=== PATIENT | male | born 1955 | race Hispanic/Latino ===

== ENCOUNTER 2016-10-21 10:24 | Inpatient (IN) | payer BC ==
[2016-10-21 11:27] LABS: Basophils % (Auto) 0.5 % (0.0-1.8); Eosinophils % (Auto) 0.7 % (0.0-4.3); Hematocrit 40.6 % (35.5-45.6); Hemoglobin 13.6 gm/dl (11.8-15.2); Mean Corpuscular HGB Conc 34 % (32-34); Mean Corpuscular Hemoglobin 32 pg (28-32); Mean Corpuscular Volume 94 fl (84-94); Platelet Count 402 K/mm3 (140-440); Red Blood Count 4.31 M/mm3 (3.65-5.03); Red Cell Distribution Width 13.8 % (13.2-15.2); White Blood Count 11.4 K/mm3 (4.5-11.0)
--- NOTE | 2016-10-21 11:29 | XRay Report ---
CHEST 2 VIEWS INDICATION: Shortness of breath. COMPARISON: 01/01/2013 FINDINGS: PA and lateral chest radiographs, 4 images, again demonstrate normal cardiomediastinal silhouette, left hilar surgical clips and hyperexpanded lungs/COPD. No large pleural effusions or CHF. Stable bones. CONCLUSION: No acute chest process or significant interval change with COPD and post surgical changes again noted, as described. Thank you for the opportunity to participate in this patient's care.
[2016-10-21 11:43] LABS: Blood Urea Nitrogen 7 mg/dL (9-20); Calcium 8.4 mg/dL (8.4-10.2); Carbon Dioxide 23 mmol/L (22-30); Glucose 137 mg/dL (75-100); Sodium 127 mmol/L (137-145)
[2016-10-21] MEDS ORDERED: ATROVENT IH ONE (11:53)
[2016-10-21] MEDS ORDERED: PROVENTIL IH ONE (11:53)
[2016-10-21] MEDS ORDERED: NACL 0.9% 1000 ML IV ONE (11:53)
--- NOTE | 2016-10-21 11:55 | Emergency Department Report ---
HPI - General Chief Complaint: Dyspnea/Respdistress Time Seen by Provider: 10/21/16 11:36 - HPI HPI: Chief complaint: Shortness of breath HPI: Patient is a 61-year-old male with a history of lung cancer, COPD status post left upper lobectomy who continues to smoke who presents with 1-1/2 weeks worth of increasing shortness of breath with productive cough with yellow sputum. Patient also complains of right-sided chest pain that is pleuritic that he describes as worse with inspiration and coughing similar to the pain he had when he had his lung cancer. Patient also states he's lost about 4 pounds in the last week and a half. Patient states he had a fever early on in the illness but is no longer running a fever. Patient has had been having increasing shortness of breath especially exertional shortness of breath. Mode of arrival: [private car] Source: [Patient] Began: Over the last week and a half Duration: Continuously worsening Context: See above Quality: Sharp Severity: 5 out of 10 Improved with: Nothing Worsened with: Exertion Associated signs and symptoms: See above ED Past Medical Hx - Past Medical History Hx Hypertension: Yes Hx GERD: Yes Hx of Cancer: Yes (LUNG) Hx COPD: Yes - Surgical History Additional Surgical History: LEFT LUNG LOBE REMOVED - Social History Smoking Status: Current Every Day Smoker Substance Use Type: Alcohol, Marijuana ED Review of Systems ROS: Stated complaint: ABBIE Other details as noted in HPI ROS Constitutional: No fever ENT: No uri symptoms Cardiovascular: No chest pain Respiratory: No sob or cough GI: No nausea vomiting or diarrhea : No dysuria frequency or urgency, Skin: No rash Neuro: No focal weakness or numbness Psych: No depression Brandon/lymph: No edema Physical Exam - Physical Exam Vital Signs: Vital Signs 10/21/16 10:32 Temperature 98.7 F Pulse Rate 121 H Respiratory 28 H Rate Blood Pressure 137/110 O2 Sat by Pulse 96 Oximetry Physical Exam: GENERAL: The patient is an extremely thin white male in mild respiratory distress HEENT: Normocephalic. Atraumatic. Extraocular motions are intact. Patient has moist mucous membranes. NECK: Supple. No meningitic signs are noted. There is no adenopathy noted. CHEST/LUNGS: Diminished with expiratory wheezes. There is mild respiratory distress noted. HEART/CARDIOVASCULAR: Regular. There is no tachycardia. There is no gallop rub or murmur. ABDOMEN: Abdomen is soft, nontender. Patient has normal bowel sounds. There is no abdominal distention. SKIN: There is no rash. There is no edema. There is no diaphoresis. NEURO: The patient is awake, alert, and oriented. The patient is cooperative. The patient has no focal neurologic deficits. The patient has normal speech. MUSCULOSKELETAL: There is no tenderness or deformity. There is no limitation range of motion. There is no evidence of acute injury. ED Course Vital Signs 10/21/16 10:32 Temperature 98.7 F Pulse Rate 121 H Respiratory 28 H Rate Blood Pressure 137/110 O2 Sat by Pulse 96 Oximetry - Reevaluation(s) Reevaluation #1: 10/21/16 Patient given a nebulizer treatment and 1 g of IV Rocephin and will be admitted to the hospitalist. ED Medical Decision Making - Lab Data Result diagrams: 10/21/16 11:07 10/21/16 11:02 Laboratory Tests 10/21/16 10/21/16 11:02 11:07 Calcium 8.4 Troponin T < 0.010 NT-Pro-B Natriuret Pep 119.0 - EKG Data -: EKG Interpreted by Pa EKG shows normal: sinus rhythm Rate: tachycardia (113) - EKG Data When compared to previous EKG there are: previous EKG unavailable Interpretation: other (sinus tach with PACs.) - Radiology Data Radiology results: report reviewed (chest x-ray shows no acute process.) Critical care attestation.: If time is entered above; I have spent that time in minutes in the direct care of this critically ill patient, excluding procedure time. ED Disposition Clinical Impression: COPD with exacerbation, Hyponatremia Acute bronchitis Qualifiers: Bronchitis organism: unspecified organism Qualified Code(s): J20.9 - Acute bronchitis, unspecified Chest pain Qualifiers: Chest pain type: unspecified Qualified Code(s): R07.9 - Chest pain, unspecified Disposition: OP ADMITTED IP TO THIS HOSP Is pt being admited?: Yes Does the pt Need Aspirin: Yes Condition: Fair Time of Disposition: 12:55 (admit to the hospitalist)
--- NOTE | 2016-10-21 12:01 | Admit Criteria Form ---
Admission Criteria Documentation: COPD Clinical Indications for Admission to Inpatient Care (Place 'X' for any and all applicable criteria): Admission is indicated for ANY ONE of the following (1)(2)(3): [ X]I. Acute exacerbation by high-risk comorbidity (e.g., pneumonia, dysrhythmia, heart failure, pleural effusion, pneumothorax) or severe underlying COPD (e.g., steroid dependent) [ X]II. Inpatient admission required rather than observation care (see Chronic Obstructive Pulmonary Disease: Observation Care) because of ANY ONE of the following: [ X]a) New or pre-existing signs or symptoms of COPD (eg, dyspnea or Tachypnea at rest or with minimal activity) that persist despite outpatient and observation care treatment [ ]b) New-onset hypoxemia (room air SaO2 less than 90%, PO2 less than 60 mm Hg (8.0 kPa)) that persists despite outpatient and observation care treatment [ ]c) Worsening of pre-existing hypoxemia (eg, new or increased requirement for supplemental oxygen to maintain oxygenation at baseline level) that persists despite outpatient and observation care treatment, with oxygen treatment needs performable only in acute inpatient setting [ ]d) Hypercarbia (PCO2 greater than 40 mm Hg (5.3 kPa))-induced respiratory acidosis (pH less than 7.35) that persists despite outpatient and observation care treatment [ ]e) Supplemental oxygen or respiratory treatments for over 24 hours that are performable only in acute inpatient setting [ ]f) Chest tube placement with active evacuation (e.g., suction, drainage) (5) [ ]g) Other condition, treatment or monitoring requiring inpatient admission [ ]III. Planned invasive surgical or diagnostic procedures requiring acute- care hospitalization [ ]IV. Acute respiratory failure (e.g., uncompensated hypercarbia, severe hypoxemia) [ ]V. Severe comorbid condition (e.g., severe steroid myopathy, acute vertebral fracture) that has acutely worsened pulmonary function [ ]. Confusion state, lethargy, obtundation, stupor or coma Extended stay beyond goal length of stay may be needed for (31)(32): [ ]a ) Respiratory Failure. [ ]b) Severe or persisting hypoxemia or hypercarbia [ ]c) Severe or persistent dyspnea [ ]d) Comorbidities (e.g. chronic heart failure, atrial fibrillation with rapid response, pneumonia) [ ]e) Malnutrition The original [facility] content created by [facility] has been revised. The portions of the content which have been revised are identified through the use of italic text or in bold, and [facility] has neither reviewed nor approved the modified material. All other unmodified content is copyright [facility]. Please see references footnoted in the original [facility] edition 2016 Admission Criteria Met: Yes
[2016-10-21 12:07] LABS: Anion Gap 20 mmol/L
[2016-10-21] MEDS ORDERED: ATIVAN IV PRN (14:20)
[2016-10-21] MEDS ORDERED: PROVENTIL IH PRN (14:20)
--- NOTE | 2016-10-21 14:32 | History and Physical Report ---
History of Present Illness Date of examination: 10/21/16 Date of admission: 10/21/16 12:35 Chief complaint: Shortness of breath History of present illness: Patient is a 61-year-old man with a history of tobacco dependency, hypertension , GERD, COPD and remote left lung cancer status post lobectomy under the care of Dr. Saunders who presents with 1-1/2 weeks worth of increasing severe progressively worse constant shortness of breath with productive cough with yellow sputum without any aggravating or relieving factors. Patient also complains of right-sided chest pain that is pleuritic that he describes as worse with inspiration and coughing similar to the pain he had when he had his lung cancer. Patient also states he's lost about 4 pounds in the last week and a half. Patient states he had a fever early on in the illness but is no longer running a fever. Patient states his cancer is in remission. Past History Past Medical History: other (as hpi) Past Surgical History: Other (left lung partially removed) Social history: smoking, full code. denies: alcohol abuse, prescription drug abuse, IV drug use Family history: denies: diabetes, hypertension Medications and Allergies Allergies Allergy/AdvReac Type Severity Reaction Status Date / Time No Known Allergies Allergy Verified 10/21/16 12:57 Active Meds: Active Medications Albuterol (Proventil) 2.5 mg IH Q4HRT PRN PRN Reason: Shortness Of Breath Albuterol/Ipratropium (Duoneb 0.5 Mg-3 Mg/3 Ml Soln) 1 ampul IH QIDRT [facility] Benzonatate (Tessalon Perles) 100 mg PO Q8HR [facility] Heparin Sodium (Porcine) (Heparin) 5,000 unit SUB-Q Q12HR [facility] Azithromycin 500 mg/ Sodium (Chloride) 250 mls @ 250 mls/hr IV Q24HR [facility] Ceftriaxone Sodium (Rocephin/Ns 1 Gm/50 Ml) mls @ 100 mls/hr IV Q24HR [facility] PRN Reason: Protocol Lorazepam (Ativan) 0.5 mg IV Q4H PRN PRN Reason: Anxiety Methylprednisolone Sodium Succinate (Solu-Medrol) 125 mg IV Q8HR [facility] Nicotine (Habitrol) 21 mg TD QDAY [facility] Review of Systems All systems: negative (as HPI and all other ROS reviewed and negative.) Exam - Physical Exam Narrative exam: GEN: Cachectic ill-appearing and mild increase use of accessory muscles, AWAKE, ALERT, ORIENTATED 3 HEENT: NCAT, PERRL, EOMI, OP CLEAR NECK: SUPPLE, NO THYROMEGALY, NO JVD, NO LAD CVS: Tachycardic but regular NORMAL S1S2 LUNGS/CHEST: Tachypnea, bilateral wheezing NORMAL CHEST EXPANSION B, diminished AIR ENTRY B ABD: SOFT NTND, GBS, NO REBOUND OR GUARDING EXT/SKIN: NO SIGNIFICANT EDEMA OR RASH MSK: FROM X 4 EXTREMITIES NEURO: CN 2-12 GROSSLY INTACT, NO FOCAL DEFICITS PSY: Anxious - Constitutional Vitals: Temp Pulse Resp BP Pulse Ox 98.7 F 98 H 18 137/110 96 10/21/16 10:32 10/21/16 13:16 10/21/16 13:16 10/21/16 10:32 10/21/16 10:32 Results - Labs CBC & Chem 7: 10/21/16 11:07 10/21/16 11:02 - Imaging and Cardiology EKG: image reviewed Assessment and Plan Patient is a 61-year-old man with a history of tobacco dependency, hypertension , GERD, COPD and remote left lung cancer status post lobectomy under the care of Dr. Saunders who presents with 1-1/2 weeks worth of increasing severe progressively worse constant shortness of breath with productive cough with yellow sputum without any aggravating or relieving factors. Patient also complains of right-sided chest pain that is pleuritic that he describes as worse with inspiration and coughing similar to the pain he had when he had his lung cancer. Patient also states he's lost about 4 pounds in the last week and a half. Patient states he had a fever early on in the illness but is no longer running a fever. Patient states his cancer is in remission.\ 1. Acute exacerbation COPD with acute or chronic aspiration pneumonitis: IV antibiotics, IV steroids, nebs 2. Sepsis acute bronchitis and suspected acute on chronic aspiration pneumonitis: IV antibiotics after blood cultures 3. Hyponatremia suspect paraneoplastic syndrome: Fluid restricted and repeat BMP 4. Unintentional weight loss, suspect severe protein calorie malnutrition: Check albumin level, consider dietary consult 5. History of lung cancer, chronic and ?worsening: Consulted Dr. Saunders, get a CT chest with and without contrast 6. Tobacco dependency: Counseling stopping and gave him a nicotine patch 7. DVT prophylaxis: SCDs and subcutaneous heparin Full code Disposition: Inpatient care
[2016-10-21] MEDS ORDERED: TYLENOL PO PRN (14:39)
[2016-10-21] MEDS ORDERED: NACL ONE (14:45)
--- NOTE | 2016-10-21 15:18 | Cat Scan Report ---
CT CHEST WITH AND WITHOUT CONTRAST History: Lung cancer. Technique: Helical CT before and after IV contrast. Sagittal and coronal reformatted images. Findings: No recent comparison. Partial left pneumonectomy changes are suspected. There are severe emphysematous changes throughout both lungs. No lung mass is appreciated. There is moderate peribronchial opacity in the right lower lobe which appears infectious in nature. No consolidation, pleural effusion or pneumothorax. There is abnormal soft tissue density in the aortopulmonary window measuring up to 3.7 x 3.5 cm. This presumably represents enlarged lymph nodes. No other thoracic adenopathy is appreciated. The heart, pericardium and mediastinal vessels are within normal limits. Normal thyroid. The bony structures are demineralized. No suspicious bony lesion. Impression: Enlarged lymph nodes or soft tissue mass in the aortopulmonary window as outlined above consistent with residual or metastatic disease. Severe emphysematous changes. Possible right lower lobe infiltrate. Correlate for pneumonia.
[2016-10-21] MEDS: TESSALON PERLES PO SCH ×2 (15:42→22:37)
[2016-10-21] MEDS: PROTONIX PO SCH (15:42)
[2016-10-21] MEDS: DUONEB 0.5 MG-3 MG/3 ML SOLN IH SCH ×3 (17:04→20:05)
[2016-10-21] MEDS: ROCEPHIN/NS 1 GM/50 ML 1 GM/50 ML BAG IV SCH (17:16)
[2016-10-21] MEDS: HABITROL TD SCH (17:17)
[2016-10-21] MEDS: ZITHROMAX 500 MG in NACL 0.9% 250ML 250 ML IV SCH (18:04)
[2016-10-22 05:41] LABS: Hematocrit 36.5 % (35.5-45.6); Hemoglobin 12.6 gm/dl (11.8-15.2); Mean Corpuscular HGB Conc 35 % (32-34); Mean Corpuscular Hemoglobin 33 pg (28-32); Mean Corpuscular Volume 94 fl (84-94); Platelet Count 389 K/mm3 (140-440); Red Blood Count 3.88 M/mm3 (3.65-5.03); Red Cell Distribution Width 13.5 % (13.2-15.2); White Blood Count 8.6 K/mm3 (4.5-11.0)
[2016-10-22 06:02] LABS: Alanine Aminotransferase 10 units/L (7-56); Albumin 3.4 g/dL (3.9-5); Alkaline Phosphatase 94 units/L (35-129); Bilirubin,Total 0.2 mg/dL (0.1-1.2); Blood Urea Nitrogen 5 mg/dL (9-20); Calcium 8.4 mg/dL (8.4-10.2); Carbon Dioxide 24 mmol/L (22-30); Chloride 89.4 mmol/L (98-107); Glucose 150 mg/dL (75-100); Potassium 4.4 mmol/L (3.6-5.0); Sodium 127 mmol/L (137-145); Total Protein 6.7 g/dL (6.3-8.2)
[2016-10-22 06:04] LABS: Anion Gap 18 mmol/L
[2016-10-22] MEDS: TESSALON PERLES PO SCH ×3 (06:17→23:43)
[2016-10-22] MEDS: DUONEB 0.5 MG-3 MG/3 ML SOLN IH SCH ×4 (08:04→19:54)
--- NOTE | 2016-10-22 09:02 | Hem/Onc Progress Note ---
Assessment and Plan needs pulm eval d/w dr zhou possible bronch will get PET as Op smokin cess continue a/b Subjective Date of service: 10/22/16 Interval history: pt known to me. h/o lung ca 2008 s/p L lobectomy and adjuvant chemo then now with sOB and CT with AP window node 3.7x3.5 cm and rll infilt h/o tob abuse- active Objective - Constitutional Vitals: Last Vital Signs Temp 98.0 F 10/22/16 07:10 Pulse 96 H 10/22/16 08:14 Resp 16 10/22/16 08:14 BP 136/86 10/22/16 07:10 Pulse Ox 96 10/22/16 08:07 General appearance: cachectic, temporal muscle wasting Performance status: 2- selfcare, ambulatory - Neck Neck: supple - Respiratory Respiratory effort: Positive: labored Respiratory: bilateral: wheezing - Cardiovascular Rhythm: regular Extremities: No edema - Gastrointestinal General gastrointestinal: Present: soft - Labs Lab Results: Laboratory Results - last 24 hr 10/22/16 10/22/16 04:42 04:42 WBC 8.6 RBC 3.88 Hgb 12.6 Hct 36.5 MCV 94 MCH 33 H MCHC 35 H RDW 13.5 Plt Count 389 Sodium 127 L Potassium 4.4 Chloride 89.4 L Carbon Dioxide 24 Anion Gap 18 BUN 5 L Creatinine 0.4 L Estimated GFR > 60 BUN/Creatinine Ratio 12.50 Glucose 150 H Calcium 8.4 Total Bilirubin 0.2 AST 10 ALT 10 Alkaline Phosphatase 94 Total Protein 6.7 Albumin 3.4 L Albumin/Globulin Ratio 1.0
[2016-10-22] MEDS: HABITROL TD SCH (10:15)
[2016-10-22] MEDS: ZITHROMAX 500 MG in NACL 0.9% 250ML 250 ML IV SCH (10:15)
[2016-10-22] MEDS: HEPARIN SUB-Q SCH ×2 (10:16→23:02)
[2016-10-22] MEDS: PROTONIX PO SCH (10:16)
[2016-10-22] MEDS: ROCEPHIN/NS 1 GM/50 ML 1 GM/50 ML BAG IV SCH (12:00)
[2016-10-22] MEDS ORDERED: FLUARIX QUAD 2016-2017(36 MOS+) IM ONE (12:00)
--- NOTE | 2016-10-22 15:49 | Consultation ---
History of Present Illness Consult date: 10/22/16 Requesting physician: RAKESH SAUNDERS Reason for consult: other (abnormal CT/Lymphadenopathy) History of present illness: 61 y/o male admitted for COPD exacerbation. [facility] ordered CT of chest given history of lung ca on the left status post lobectomy vs partial lobectomy. CT revealed a large lymph node in the AP window concerning for mets or recurrence of disease. Dr. Saunders consulted me asking for bronchoscopy with biopsy. Past History Past Medical History: other (as hpi) Past Surgical History: Other (left lung partially removed) Social history: smoking, full code. denies: alcohol abuse, prescription drug abuse, IV drug use Family history: denies: diabetes, hypertension Medications and Allergies Allergies Allergy/AdvReac Type Severity Reaction Status Date / Time No Known Allergies Allergy Verified 10/21/16 12:57 Home Medications Medication Instructions Recorded Confirmed Last Taken Type Fluticasone/Salmeterol [Advair 1 puff IH BID 10/21/16 10/21/16 Unknown History Diskus 250-50 mcg] Tiotropium [Spiriva] 1 puff IH DAILY 10/21/16 10/21/16 Unknown History Active Meds: Active Medications Acetaminophen (Tylenol) 650 mg PO Q6H PRN PRN Reason: Non Cardiac Pain or Temp>100.5 Albuterol (Proventil) 2.5 mg IH Q4HRT PRN PRN Reason: Shortness Of Breath Albuterol/Ipratropium (Duoneb 0.5 Mg-3 Mg/3 Ml Soln) 1 ampul IH QIDRT [facility] Last Admin: 10/22/16 15:35 Dose: 1 ampul Benzonatate (Tessalon Perles) 100 mg PO Q8HR [facility] Last Admin: 10/22/16 13:47 Dose: 100 mg Heparin Sodium (Porcine) (Heparin) 5,000 unit SUB-Q Q12HR [facility] Last Admin: 10/22/16 10:16 Dose: 5,000 unit Azithromycin 500 mg/ Sodium (Chloride) 250 mls @ 250 mls/hr IV Q24HR [facility] Last Admin: 10/22/16 10:15 Dose: 250 mls/hr Ceftriaxone Sodium (Rocephin/Ns 1 Gm/50 Ml) 1 gm in 50 mls @ 0 mls/hr IV Q24HR [facility] PRN Reason: Protocol Last Admin: 10/22/16 12:00 Dose: 100 mls/hr Lorazepam (Ativan) 0.5 mg IV Q4H PRN PRN Reason: Anxiety Last Admin: 10/21/16 23:03 Dose: 0.5 mg Methylprednisolone Sodium Succinate (Solu-Medrol) 125 mg IV Q8HR [facility] Last Admin: 10/22/16 13:47 Dose: 125 mg Nicotine (Habitrol) 21 mg TD QDAY [facility] Last Admin: 10/22/16 10:15 Dose: 21 mg Pantoprazole Sodium (Protonix) 40 mg PO QDAY [facility] Last Admin: 10/22/16 10:16 Dose: 40 mg Zolpidem Tartrate (Ambien) 5 mg PO QHS PRN PRN Reason: Sleep Physical Examination Vital signs: Vital Signs Temp Pulse Resp BP Pulse Ox 98.7 F 121 H 28 H 137/110 96 10/21/16 10:32 10/21/16 10:32 10/21/16 10:32 10/21/16 10:32 10/21/16 10:32 General appearance: no acute distress, alert Eyes: non-icteric ENT: oropharynx moist Neck: supple Effort: normal Ascultation: Bilateral: diminished breath sounds Percussion: Bilateral: not dull Cardiovascular: regular rate and rhythm Gastrointestinal: normoactive bowel sounds, soft, non-tender, non-distended Extremities: no edema normal mental status other (flat affect) Results - Laboratory Findings CBC and BMP: 10/22/16 04:42 10/22/16 04:42 Abnormal lab findings: Abnormal Labs 10/22/16 10/22/16 04:42 04:42 MCH 33 H MCHC 35 H Sodium 127 L Chloride 89.4 L BUN 5 L Creatinine 0.4 L Glucose 150 H Albumin 3.4 L - Diagnostic Findings CT scan - chest: image reviewed (severe emphysema with enlarged AP window lymph node) Assessment and Plan 61 y/o male with known COPD, past med hx of lung ca status post resection now with COPD exacerbation and CT scan showing an enlarged lymph node. 1. Patient is amenable to biopsy 2. Call lab today but no answer to try to set up for Tuesday 3. May have to schedule as an outpatient if patient is stable for discharge prior to then.
[2016-10-22 17:37] LABS: INR 0.94 (0.87-1.13)
[2016-10-22 17:38] LABS: Partial Thromboplastin Time 25.4 Sec. (24.2-36.6)
--- NOTE | 2016-10-22 19:01 | Progress Note ---
Assessment and Plan - Patient Problems (1) Sepsis Current Visit: Yes Status: Acute Qualifiers: Sepsis type: S Plan to address problem: IV abx, ivf, supportive care, (2) COPD with exacerbation Current Visit: Yes Status: Acute Plan to address problem: Pulmonary consulted, supportive care, supplemental oxygen, abx, pulmonary toilet. (3) Acute bronchitis Current Visit: Yes Status: Acute Qualifiers: Bronchitis organism: unspecified organism Qualified Code(s): J20.9 - Acute bronchitis, unspecified Plan to address problem: supportive care, supplemental oxygen, steroids, supportive care. (4) Hyponatremia Current Visit: Yes Status: Acute Plan to address problem: hypertonic saline, supportive care. (5) DVT prophylaxis Current Visit: Yes Status: Acute History Interval history: Pt resting in bed, and chronically ill appearing. Pt complains of insomnia overnight. Hospitalist Physical - Constitutional Vitals: Temp Pulse Resp BP Pulse Ox 97.8 F 117 H 20 119/83 98 10/22/16 14:08 10/22/16 15:52 10/22/16 15:52 10/22/16 14:08 10/22/16 14:08 General appearance: Present: mild distress, cachectic - EENT Eyes: Present: PERRL, EOM intact ENT: hearing intact - Neck Neck: Present: supple - Respiratory Respiratory: bilateral: diminished - Cardiovascular Rhythm: regular Heart Sounds: Present: S1 & S2 Peripheral Pulses: within normal limits - Abdominal General gastrointestinal: soft, non-tender, non-distended - Integumentary Integumentary: Present: clear, dry - Psychiatric Psychiatric: appropriate mood/affect, cooperative - Neurologic Neurologic: CNII-XII intact Results - Labs CBC & Chem 7: 10/22/16 04:42 10/22/16 04:42 Labs: Laboratory Last Values WBC 8.6 K/mm3 (4.5-11.0) 10/22/16 04:42 RBC 3.88 M/mm3 (3.65-5.03) 10/22/16 04:42 Hgb 12.6 gm/dl (11.8-15.2) 10/22/16 04:42 Hct 36.5 % (35.5-45.6) 10/22/16 04:42 MCV 94 fl (84-94) 10/22/16 04:42 MCH 33 pg (28-32) H 10/22/16 04:42 MCHC 35 % (32-34) H 10/22/16 04:42 RDW 13.5 % (13.2-15.2) 10/22/16 04:42 Plt Count 389 K/mm3 (140-440) 10/22/16 04:42 Lymph % (Auto) 13.7 % (13.4-35.0) 10/21/16 11:07 Chaves % (Auto) 11.1 % (0.0-7.3) H 10/21/16 11:07 Eos % (Auto) 0.7 % (0.0-4.3) 10/21/16 11:07 Baso % (Auto) 0.5 % (0.0-1.8) 10/21/16 11:07 Lymph # 1.6 K/mm3 (1.2-5.4) 10/21/16 11:07 Chaves # 1.3 K/mm3 (0.0-0.8) H 10/21/16 11:07 Eos # 0.1 K/mm3 (0.0-0.4) 10/21/16 11:07 Baso # 0.1 K/mm3 (0.0-0.1) 10/21/16 11:07 Seg Neutrophils % 74.0 % (40.0-70.0) H 10/21/16 11:07 Seg Neutrophils # 8.4 K/mm3 (1.8-7.7) H 10/21/16 11:07 PT 12.5 Sec. (12.2-14.9) 10/22/16 17:06 INR 0.94 (0.87-1.13) 10/22/16 17:06 APTT 25.4 Sec. (24.2-36.6) 10/22/16 17:06 Sodium 127 mmol/L (137-145) L 10/22/16 04:42 Potassium 4.4 mmol/L (3.6-5.0) 10/22/16 04:42 Chloride 89.4 mmol/L (98-107) L 10/22/16 04:42 Carbon Dioxide 24 mmol/L (22-30) 10/22/16 04:42 Anion Gap 18 mmol/L 10/22/16 04:42 BUN 5 mg/dL (9-20) L 10/22/16 04:42 Creatinine 0.4 mg/dL (0.8-1.5) L 10/22/16 04:42 Estimated GFR > 60 ml/min 10/22/16 04:42 BUN/Creatinine Ratio 12.50 % 10/22/16 04:42 Glucose 150 mg/dL (75-100) H 10/22/16 04:42 Calcium 8.4 mg/dL (8.4-10.2) 10/22/16 04:42 Total Bilirubin 0.2 mg/dL (0.1-1.2) 10/22/16 04:42 AST 10 units/L (5-40) 10/22/16 04:42 ALT 10 units/L (7-56) 10/22/16 04:42 Alkaline Phosphatase 94 units/L (35-129) 10/22/16 04:42 Troponin T < 0.010 ng/mL (0.00-0.029) 10/21/16 11:02 NT-Pro-B Natriuret Pep 119.0 pg/mL (0-900) 10/21/16 11:07 Total Protein 6.7 g/dL (6.3-8.2) 10/22/16 04:42 Albumin 3.4 g/dL (3.9-5) L 10/22/16 04:42 Albumin/Globulin Ratio 1.0 % 10/22/16 04:42
[2016-10-22] MEDS: AMBIEN PO PRN (23:43)
[2016-10-23] MEDS: DUONEB 0.5 MG-3 MG/3 ML SOLN IH SCH ×4 (08:06→19:15)
[2016-10-23] MEDS: TESSALON PERLES PO SCH ×3 (08:37→22:01)
--- NOTE | 2016-10-23 11:26 | Event Note ---
Date: 10/23/16 Called Endo yesterday afternoon with no answer. Unable to solidify a time for Tuesday. As i explained to patient would likely be Tuesday. Will discuss with oncoming doc. Call if questions.
[2016-10-23] MEDS: HABITROL TD SCH (11:44)
[2016-10-23] MEDS: PROTONIX PO SCH (11:46)
[2016-10-23] MEDS: ROCEPHIN/NS 1 GM/50 ML 1 GM/50 ML BAG IV SCH (11:47)
[2016-10-23] MEDS: ZITHROMAX 500 MG in NACL 0.9% 250ML 250 ML IV SCH (12:15)
[2016-10-23] MEDS: HEPARIN SUB-Q SCH ×2 (12:18→22:31)
--- NOTE | 2016-10-23 18:16 | Hem/Onc Progress Note ---
Assessment and Plan - hx of lung cancer with enlarged AP LN - to undergo pulmonary eval for poss bronch Subjective Date of service: 10/23/16 Principal diagnosis: lung cancer Interval history: no acute events Objective - Constitutional Vitals: Last Vital Signs Temp 97.9 F 10/23/16 15:20 Pulse 110 H 10/23/16 15:20 Resp 18 10/23/16 15:20 BP 140/81 10/23/16 15:20 Pulse Ox 97 10/23/16 10:00 - EENT Eyes: PERRL - Neck Neck: supple - Respiratory Respiratory effort: Positive: normal - Cardiovascular Rhythm: regular Extremities: No edema - Gastrointestinal General gastrointestinal: Present: soft
[2016-10-23] MEDS: AMBIEN PO PRN (22:31)
--- NOTE | 2016-10-24 07:10 | Progress Note ---
Assessment and Plan - Patient Problems (1) Sepsis Current Visit: Yes Status: Acute Qualifiers: Sepsis type: S Plan to address problem: IV abx, ivf, supportive care, (2) COPD with exacerbation Current Visit: Yes Status: Acute Plan to address problem: Pulmonary consulted, supportive care, supplemental oxygen, abx, pulmonary toilet. (3) Acute bronchitis Current Visit: Yes Status: Acute Qualifiers: Bronchitis organism: unspecified organism Qualified Code(s): J20.9 - Acute bronchitis, unspecified Plan to address problem: supportive care, supplemental oxygen, steroids, supportive care. (4) Hyponatremia Current Visit: Yes Status: Acute Plan to address problem: hypertonic saline, supportive care. (5) Lung cancer Current Visit: Yes Status: Acute Qualifiers: Laterality: L Lung location: L Plan to address problem: Heme-Onc consulted, continue current care. bronch as per pulmonary team. (6) DVT prophylaxis Current Visit: Yes Status: Acute History Interval history: Pt resting in bed, and chronically ill appearing. Pt states that he feels better today. Pt states that he wants to go home and have patient done as outpatient. Pt counseled regarding risks and benefits, and informed of physician recommendation to have procedure done as inpatient. Pt acknowledges understanding instructions. Hospitalist Physical - Constitutional Vitals: Temp Pulse Resp BP Pulse Ox 98.1 F 110 H 20 132/85 99 10/24/16 00:00 10/24/16 00:00 10/24/16 00:00 10/24/16 00:00 10/24/16 00:00 General appearance: Present: mild distress, cachectic - EENT Eyes: Present: PERRL, EOM intact ENT: hearing intact - Neck Neck: Present: supple - Respiratory Respiratory: bilateral: diminished - Cardiovascular Rhythm: regular Heart Sounds: Present: S1 & S2 - Extremities Extremities: no ischemia Peripheral Pulses: within normal limits - Abdominal General gastrointestinal: soft, non-tender, non-distended - Integumentary Integumentary: Present: clear, dry - Psychiatric Psychiatric: appropriate mood/affect, cooperative - Neurologic Neurologic: CNII-XII intact Results - Labs CBC & Chem 7: 10/22/16 04:42 10/22/16 04:42 Labs: Laboratory Last Values WBC 8.6 K/mm3 (4.5-11.0) 10/22/16 04:42 RBC 3.88 M/mm3 (3.65-5.03) 10/22/16 04:42 Hgb 12.6 gm/dl (11.8-15.2) 10/22/16 04:42 Hct 36.5 % (35.5-45.6) 10/22/16 04:42 MCV 94 fl (84-94) 10/22/16 04:42 MCH 33 pg (28-32) H 10/22/16 04:42 MCHC 35 % (32-34) H 10/22/16 04:42 RDW 13.5 % (13.2-15.2) 10/22/16 04:42 Plt Count 389 K/mm3 (140-440) 10/22/16 04:42 Lymph % (Auto) 13.7 % (13.4-35.0) 10/21/16 11:07 [place] % (Auto) 11.1 % (0.0-7.3) H 10/21/16 11:07 Eos % (Auto) 0.7 % (0.0-4.3) 10/21/16 11:07 Baso % (Auto) 0.5 % (0.0-1.8) 10/21/16 11:07 Lymph # 1.6 K/mm3 (1.2-5.4) 10/21/16 11:07 [place] # 1.3 K/mm3 (0.0-0.8) H 10/21/16 11:07 Eos # 0.1 K/mm3 (0.0-0.4) 10/21/16 11:07 Baso # 0.1 K/mm3 (0.0-0.1) 10/21/16 11:07 Seg Neutrophils % 74.0 % (40.0-70.0) H 10/21/16 11:07 Seg Neutrophils # 8.4 K/mm3 (1.8-7.7) H 10/21/16 11:07 PT 12.5 Sec. (12.2-14.9) 10/22/16 17:06 INR 0.94 (0.87-1.13) 10/22/16 17:06 APTT 25.4 Sec. (24.2-36.6) 10/22/16 17:06 Sodium 127 mmol/L (137-145) L 10/22/16 04:42 Potassium 4.4 mmol/L (3.6-5.0) 10/22/16 04:42 Chloride 89.4 mmol/L (98-107) L 10/22/16 04:42 Carbon Dioxide 24 mmol/L (22-30) 10/22/16 04:42 Anion Gap 18 mmol/L 10/22/16 04:42 BUN 5 mg/dL (9-20) L 10/22/16 04:42 Creatinine 0.4 mg/dL (0.8-1.5) L 10/22/16 04:42 Estimated GFR > 60 ml/min 10/22/16 04:42 BUN/Creatinine Ratio 12.50 % 10/22/16 04:42 Glucose 150 mg/dL (75-100) H 10/22/16 04:42 Calcium 8.4 mg/dL (8.4-10.2) 10/22/16 04:42 Total Bilirubin 0.2 mg/dL (0.1-1.2) 10/22/16 04:42 AST 10 units/L (5-40) 10/22/16 04:42 ALT 10 units/L (7-56) 10/22/16 04:42 Alkaline Phosphatase 94 units/L (35-129) 10/22/16 04:42 Troponin T < 0.010 ng/mL (0.00-0.029) 10/21/16 11:02 NT-Pro-B Natriuret Pep 119.0 pg/mL (0-900) 10/21/16 11:07 Total Protein 6.7 g/dL (6.3-8.2) 10/22/16 04:42 Albumin 3.4 g/dL (3.9-5) L 10/22/16 04:42 Albumin/Globulin Ratio 1.0 % 10/22/16 04:42
[2016-10-24] MEDS: TESSALON PERLES PO SCH ×3 (08:03→22:25)
[2016-10-24] MEDS: DUONEB 0.5 MG-3 MG/3 ML SOLN IH SCH ×3 (09:05→19:23)
[2016-10-24] MEDS: HABITROL TD SCH (10:09)
[2016-10-24] MEDS: ROCEPHIN/NS 1 GM/50 ML 1 GM/50 ML BAG IV SCH (10:11)
[2016-10-24] MEDS: PROTONIX PO SCH (10:16)
[2016-10-24] MEDS: HEPARIN SUB-Q SCH ×2 (10:17→22:26)
[2016-10-24] MEDS: ZITHROMAX 500 MG in NACL 0.9% 250ML 250 ML IV SCH (11:15)
--- NOTE | 2016-10-24 15:21 | Progress Note ---
Assessment and Plan - Patient Problems (1) Sepsis Current Visit: Yes Status: Acute Qualifiers: Sepsis type: S Plan to address problem: IV abx, ivf, supportive care, (2) COPD with exacerbation Current Visit: Yes Status: Acute Plan to address problem: Pulmonary consulted, supportive care, supplemental oxygen, abx, pulmonary toilet. (3) Acute bronchitis Current Visit: Yes Status: Acute Qualifiers: Bronchitis organism: unspecified organism Qualified Code(s): J20.9 - Acute bronchitis, unspecified Plan to address problem: supportive care, supplemental oxygen, steroids, supportive care. (4) Hyponatremia Current Visit: Yes Status: Acute Plan to address problem: hypertonic saline, supportive care. (5) Lung cancer Current Visit: Yes Status: Acute Qualifiers: Laterality: L Lung location: L Plan to address problem: Heme-Onc consulted, continue current care. bronch as per pulmonary team. (6) DVT prophylaxis Current Visit: Yes Status: Acute History Interval history: Pt resting in bed, and chronically ill appearing. Pt states that he feels better today. No reported nursing events. Hospitalist Physical - Constitutional Vitals: Temp Pulse Resp BP Pulse Ox 97.5 F L 108 H 20 160/93 95 10/24/16 07:13 10/24/16 13:55 10/24/16 13:55 10/24/16 07:13 10/24/16 09:06 General appearance: Present: mild distress, cachectic - EENT Eyes: Present: PERRL, EOM intact ENT: hearing intact - Neck Neck: Present: supple - Respiratory Respiratory: bilateral: diminished - Cardiovascular Rhythm: regular Heart Sounds: Present: S1 & S2 - Extremities Extremities: no ischemia Peripheral Pulses: within normal limits - Abdominal General gastrointestinal: soft, non-tender, non-distended - Integumentary Integumentary: Present: clear, dry - Psychiatric Psychiatric: appropriate mood/affect, cooperative - Neurologic Neurologic: CNII-XII intact Results - Labs CBC & Chem 7: 10/22/16 04:42 10/22/16 04:42 Labs: Laboratory Last Values WBC 8.6 K/mm3 (4.5-11.0) 10/22/16 04:42 RBC 3.88 M/mm3 (3.65-5.03) 10/22/16 04:42 Hgb 12.6 gm/dl (11.8-15.2) 10/22/16 04:42 Hct 36.5 % (35.5-45.6) 10/22/16 04:42 MCV 94 fl (84-94) 10/22/16 04:42 MCH 33 pg (28-32) H 10/22/16 04:42 MCHC 35 % (32-34) H 10/22/16 04:42 RDW 13.5 % (13.2-15.2) 10/22/16 04:42 Plt Count 389 K/mm3 (140-440) 10/22/16 04:42 Lymph % (Auto) 13.7 % (13.4-35.0) 10/21/16 11:07 [place] % (Auto) 11.1 % (0.0-7.3) H 10/21/16 11:07 Eos % (Auto) 0.7 % (0.0-4.3) 10/21/16 11:07 Baso % (Auto) 0.5 % (0.0-1.8) 10/21/16 11:07 Lymph # 1.6 K/mm3 (1.2-5.4) 10/21/16 11:07 [place] # 1.3 K/mm3 (0.0-0.8) H 10/21/16 11:07 Eos # 0.1 K/mm3 (0.0-0.4) 10/21/16 11:07 Baso # 0.1 K/mm3 (0.0-0.1) 10/21/16 11:07 Seg Neutrophils % 74.0 % (40.0-70.0) H 10/21/16 11:07 Seg Neutrophils # 8.4 K/mm3 (1.8-7.7) H 10/21/16 11:07 PT 12.5 Sec. (12.2-14.9) 10/22/16 17:06 INR 0.94 (0.87-1.13) 10/22/16 17:06 APTT 25.4 Sec. (24.2-36.6) 10/22/16 17:06 Sodium 127 mmol/L (137-145) L 10/22/16 04:42 Potassium 4.4 mmol/L (3.6-5.0) 10/22/16 04:42 Chloride 89.4 mmol/L (98-107) L 10/22/16 04:42 Carbon Dioxide 24 mmol/L (22-30) 10/22/16 04:42 Anion Gap 18 mmol/L 10/22/16 04:42 BUN 5 mg/dL (9-20) L 10/22/16 04:42 Creatinine 0.4 mg/dL (0.8-1.5) L 10/22/16 04:42 Estimated GFR > 60 ml/min 10/22/16 04:42 BUN/Creatinine Ratio 12.50 % 10/22/16 04:42 Glucose 150 mg/dL (75-100) H 10/22/16 04:42 Calcium 8.4 mg/dL (8.4-10.2) 10/22/16 04:42 Total Bilirubin 0.2 mg/dL (0.1-1.2) 10/22/16 04:42 AST 10 units/L (5-40) 10/22/16 04:42 ALT 10 units/L (7-56) 10/22/16 04:42 Alkaline Phosphatase 94 units/L (35-129) 10/22/16 04:42 Troponin T < 0.010 ng/mL (0.00-0.029) 10/21/16 11:02 NT-Pro-B Natriuret Pep 119.0 pg/mL (0-900) 10/21/16 11:07 Total Protein 6.7 g/dL (6.3-8.2) 10/22/16 04:42 Albumin 3.4 g/dL (3.9-5) L 10/22/16 04:42 Albumin/Globulin Ratio 1.0 % 10/22/16 04:42
[2016-10-25] MEDS: AMBIEN PO PRN (00:08)
[2016-10-25] MEDS: TESSALON PERLES PO SCH ×3 (06:37→22:41)
[2016-10-25] MEDS: DUONEB 0.5 MG-3 MG/3 ML SOLN IH SCH ×3 (08:09→19:23)
--- NOTE | 2016-10-25 09:22 | Hem/Onc Progress Note ---
Assessment and Plan We will await bronchoscopy results. If bronchoscopy is unrevealing, may need to consider biopsy of the AP node which we may have to do possibly at [place] or [place] or [facility]. Continue anti-biotics Subjective Date of service: 10/25/16 Interval history: Patient feels better. For bronchoscopy tomorrow. Still has cough. Has a lot of questions. Also wants to quit smoking. Objective - Constitutional Vitals: Last Vital Signs Temp 98.4 F 10/25/16 08:00 Pulse 110 H 10/25/16 08:11 Resp 16 10/25/16 08:11 BP 126/69 10/25/16 08:00 Pulse Ox 96 10/25/16 08:11 General appearance: cachectic Performance status: 2- selfcare, ambulatory - Respiratory Respiratory: bilateral: diminished - Cardiovascular Rhythm: regular - Gastrointestinal General gastrointestinal: Present: soft
[2016-10-25] MEDS: ROCEPHIN/NS 1 GM/50 ML 1 GM/50 ML BAG IV SCH (11:00)
[2016-10-25] MEDS: HABITROL TD SCH (11:01)
[2016-10-25] MEDS: PROTONIX PO SCH (11:02)
[2016-10-25] MEDS: HEPARIN SUB-Q SCH ×2 (11:02→22:41)
[2016-10-25] MEDS: ZITHROMAX 500 MG in NACL 0.9% 250ML 250 ML IV SCH (13:16)
--- NOTE | 2016-10-25 13:39 | Progress Note ---
Assessment and Plan Imp: 1. RLL CAP 2. Centrilobular emphysema 3. COPD exac. 4. Acute respiratory failure, hypoxia 5. Hx of NSCLC 6. Chronic nicotine dependence, cigs 7. Mediastinal mass Rec: 1. RLL peribronchial densities likely inflammatory/infectious; would complete 7- 10 days of ABX 2. Stop Solumedrol; Prednisone taper at d/c 3. Stop smoking, d/w patient 4. Needs free water restriction 1500mL or less 5. Mediastinal/AP window lesion not accessible with regular bronchoscopy (yield for blind TBNA too low); I think it would be better to obtain an outpatient PET scan and likely outpatient bronch with EBUS under general anesthesia; patient is agreeable to this plan (he does not want to do 2 bronchs which is what he would need if we did a negative bronch here); d/w Dr. Saunders also 6. Can go home pulmonary-[facility] but needs home O2 evaluation first; gave him our office information Plan of care reviewed w/ patient, he understands/agrees Subjective Date of service: 10/25/16 Principal diagnosis: lung cancer Interval history: No events. Feeling better. Wants to go home. No chest pain. SOB back at usual baseline. Has a cough, no sputum. Active Medications Acetaminophen (Tylenol) 650 mg PO Q6H PRN PRN Reason: Non Cardiac Pain or Temp>100.5 Albuterol (Proventil) 2.5 mg IH Q4HRT PRN PRN Reason: Shortness Of Breath Albuterol/Ipratropium (Duoneb 0.5 Mg-3 Mg/3 Ml Soln) 1 ampul IH TIDRT [facility] Last Admin: 10/25/16 08:09 Dose: 1 ampul Benzonatate (Tessalon Perles) 100 mg PO Q8HR [facility] Last Admin: 10/25/16 13:16 Dose: 100 mg Heparin Sodium (Porcine) (Heparin) 5,000 unit SUB-Q Q12HR [facility] Last Admin: 10/25/16 11:02 Dose: 5,000 unit Azithromycin 500 mg/ Sodium (Chloride) 250 mls @ 250 mls/hr IV Q24HR [facility] Last Admin: 10/25/16 13:16 Dose: 250 mls/hr Ceftriaxone Sodium (Rocephin/Ns 1 Gm/50 Ml) 1 gm in 50 mls @ 0 mls/hr IV Q24HR [facility] PRN Reason: Protocol Last Admin: 10/25/16 11:00 Dose: 50 mls/hr Lorazepam (Ativan) 0.5 mg IV Q4H PRN PRN Reason: Anxiety Last Admin: 10/21/16 23:03 Dose: 0.5 mg Methylprednisolone Sodium Succinate (Solu-Medrol) 125 mg IV Q8HR [facility] Last Admin: 10/25/16 13:16 Dose: 125 mg Nicotine (Habitrol) 21 mg TD QDAY [facility] Last Admin: 10/25/16 11:01 Dose: 21 mg Pantoprazole Sodium (Protonix) 40 mg PO QDAY [facility] Last Admin: 10/25/16 11:02 Dose: 40 mg Zolpidem Tartrate (Ambien) 5 mg PO QHS PRN PRN Reason: Sleep Last Admin: 10/25/16 00:08 Dose: 5 mg Objective Vital Signs - 12hr 10/25/16 10/25/16 10/25/16 08:00 08:11 08:26 Temperature 98.4 F Pulse Rate [ 110 H 108 H Posterior Throughout] Pulse Rate [ 86 Right] Respiratory 18 Rate Respiratory 16 16 Rate [Posterior Throughout] Blood Pressure 126/69 [Right Arm] O2 Sat by Pulse 96 96 Oximetry Constitutional: no acute distress, alert Eyes: non-icteric ENT: oropharynx moist Neck: supple Effort: normal Ascultation: Bilateral: clear Cardiovascular: regular rate and rhythm (mildly tachy, RR; no mrg) Gastrointestinal: normoactive bowel sounds, soft, non-tender, non-distended Extremities: no cyanosis, no edema, pink and warm Neurologic: normal mental status, non-focal exam, pupils equal and round Psychiatric: mood appropriate, affect normal CBC and BMP: 10/22/16 04:42 10/22/16 04:42 ABG, PT/INR, D-dimer: PT/INR, D-dimer PT 12.5 Sec. (12.2-14.9) 10/22/16 17:06 INR 0.94 (0.87-1.13) 10/22/16 17:06 Abnormal lab findings: Abnormal Labs 10/22/16 10/22/16 04:42 04:42 MCH 33 H MCHC 35 H Sodium 127 L Chloride 89.4 L BUN 5 L Creatinine 0.4 L Glucose 150 H Albumin 3.4 L Chest x-ray: report reviewed, image reviewed CT scan - chest: report reviewed, image reviewed
--- NOTE | 2016-10-25 18:29 | Progress Note ---
Assessment and Plan - Patient Problems (1) Sepsis Current Visit: Yes Status: Acute Qualifiers: Sepsis type: S Plan to address problem: IV abx, ivf, supportive care, (2) COPD with exacerbation Current Visit: Yes Status: Acute Plan to address problem: Pulmonary consulted, supportive care, supplemental oxygen, abx, pulmonary toilet. (3) Acute bronchitis Current Visit: Yes Status: Acute Qualifiers: Bronchitis organism: unspecified organism Qualified Code(s): J20.9 - Acute bronchitis, unspecified Plan to address problem: supportive care, supplemental oxygen, steroids, supportive care. (4) Hyponatremia Current Visit: Yes Status: Acute Plan to address problem: hypertonic saline, supportive care. (5) Lung cancer Current Visit: Yes Status: Acute Qualifiers: Laterality: L Lung location: L Plan to address problem: Heme-Onc consulted, continue current care. bronch as per pulmonary team. (6) DVT prophylaxis Current Visit: Yes Status: Acute History Interval history: Pt resting in bed, and chronically ill appearing. Pt states that he feels better today. No reported nursing events. Hospitalist Physical - Constitutional Vitals: Temp Pulse Resp BP Pulse Ox 97.9 F 116 H 20 135/95 96 10/25/16 16:44 10/25/16 16:44 10/25/16 16:44 10/25/16 16:44 10/25/16 08:11 General appearance: Present: mild distress, cachectic - EENT Eyes: Present: PERRL, EOM intact ENT: hearing intact - Neck Neck: Present: supple - Respiratory Respiratory: bilateral: diminished - Cardiovascular Rhythm: regular Heart Sounds: Present: S1 & S2 - Extremities Extremities: no ischemia Peripheral Pulses: within normal limits - Abdominal General gastrointestinal: soft, non-tender, non-distended - Integumentary Integumentary: Present: clear, dry - Psychiatric Psychiatric: appropriate mood/affect, cooperative - Neurologic Neurologic: CNII-XII intact Results - Labs CBC & Chem 7: 10/22/16 04:42 10/22/16 04:42 Labs: Laboratory Last Values WBC 8.6 K/mm3 (4.5-11.0) 10/22/16 04:42 RBC 3.88 M/mm3 (3.65-5.03) 10/22/16 04:42 Hgb 12.6 gm/dl (11.8-15.2) 10/22/16 04:42 Hct 36.5 % (35.5-45.6) 10/22/16 04:42 MCV 94 fl (84-94) 10/22/16 04:42 MCH 33 pg (28-32) H 10/22/16 04:42 MCHC 35 % (32-34) H 10/22/16 04:42 RDW 13.5 % (13.2-15.2) 10/22/16 04:42 Plt Count 389 K/mm3 (140-440) 10/22/16 04:42 Lymph % (Auto) 13.7 % (13.4-35.0) 10/21/16 11:07 [place] % (Auto) 11.1 % (0.0-7.3) H 10/21/16 11:07 Eos % (Auto) 0.7 % (0.0-4.3) 10/21/16 11:07 Baso % (Auto) 0.5 % (0.0-1.8) 10/21/16 11:07 Lymph # 1.6 K/mm3 (1.2-5.4) 10/21/16 11:07 [place] # 1.3 K/mm3 (0.0-0.8) H 10/21/16 11:07 Eos # 0.1 K/mm3 (0.0-0.4) 10/21/16 11:07 Baso # 0.1 K/mm3 (0.0-0.1) 10/21/16 11:07 Seg Neutrophils % 74.0 % (40.0-70.0) H 10/21/16 11:07 Seg Neutrophils # 8.4 K/mm3 (1.8-7.7) H 10/21/16 11:07 PT 12.5 Sec. (12.2-14.9) 10/22/16 17:06 INR 0.94 (0.87-1.13) 10/22/16 17:06 APTT 25.4 Sec. (24.2-36.6) 10/22/16 17:06 Sodium 127 mmol/L (137-145) L 10/22/16 04:42 Potassium 4.4 mmol/L (3.6-5.0) 10/22/16 04:42 Chloride 89.4 mmol/L (98-107) L 10/22/16 04:42 Carbon Dioxide 24 mmol/L (22-30) 10/22/16 04:42 Anion Gap 18 mmol/L 10/22/16 04:42 BUN 5 mg/dL (9-20) L 10/22/16 04:42 Creatinine 0.4 mg/dL (0.8-1.5) L 10/22/16 04:42 Estimated GFR > 60 ml/min 10/22/16 04:42 BUN/Creatinine Ratio 12.50 % 10/22/16 04:42 Glucose 150 mg/dL (75-100) H 10/22/16 04:42 Calcium 8.4 mg/dL (8.4-10.2) 10/22/16 04:42 Total Bilirubin 0.2 mg/dL (0.1-1.2) 10/22/16 04:42 AST 10 units/L (5-40) 10/22/16 04:42 ALT 10 units/L (7-56) 10/22/16 04:42 Alkaline Phosphatase 94 units/L (35-129) 10/22/16 04:42 Troponin T < 0.010 ng/mL (0.00-0.029) 10/21/16 11:02 NT-Pro-B Natriuret Pep 119.0 pg/mL (0-900) 10/21/16 11:07 Total Protein 6.7 g/dL (6.3-8.2) 10/22/16 04:42 Albumin 3.4 g/dL (3.9-5) L 10/22/16 04:42 Albumin/Globulin Ratio 1.0 % 10/22/16 04:42
[2016-10-26] MEDS: AMBIEN PO PRN (00:28)
[2016-10-26] MEDS: TESSALON PERLES PO SCH (06:52)
[2016-10-26] MEDS: DUONEB 0.5 MG-3 MG/3 ML SOLN IH SCH ×2 (07:33→13:32)
--- NOTE | 2016-10-26 07:52 | Discharge Summary ---
Providers - Providers Date of Admission: 10/21/16 12:35 Attending physician: HUANG JARRETT MD 10/21/16 14:23 Consult to Physician [CONS] Routine Consulting Provider: RAKESH PARRA Reason For Exam: Lung cancer, patient known to you Place consult to:: Chip FRANCO Notified:: Y Was contact made?: Yes If yes, spoke with:: ROSSY OFFICE Time called:: 14:25 10/22/16 08:57 Consult to Physician [CONS] Routine Consulting Provider: JOVAN SANDERS Reason For Exam: h/o lung ca. rll infil and AP window node Place consult to:: DR. SANDERS Notified:: DR. SANDERS Was contact made?: Yes If yes, spoke with:: Dr sanders Primary care physician: CREDIT CARD CLERK Hospitalization Condition: Fair Hospital course: 61 YO Male admitted for sepsis, Severe Malnutrition, COPD exacerbation complicated by Acute hypoxemic respiratory failure. Pt treated with abx, supplemental oxygen, nebulizer therapy, and supportive care. Pulmonary team consulted. Oncology team consulted for reevaluation for suspected recurrent lung cancer. Pt convalesced well during hospital course. Pt symptoms improved with therapy and supplemental oxygen. Pt medically optimized. Pt seen and evaluated prior to discharge but no significant new physical exam findings since admission. Pt discharged home with home health. Pt instructed to fj/u pcp 1wk, pulmonary 1wk, and oncology 1wk. Pt to have outpatient PET scan as per oncology/pulmonary teams. 35 minutes dedicated to patient discharge and education. Pt counseled regarding increased protein intake. Disposition: DC/TX HOME UNDER HOME HEALTH - Discharge Diagnoses (1) Sepsis Status: Acute Qualifiers: Sepsis type: S (2) COPD with exacerbation Status: Acute (3) Acute bronchitis Status: Acute Qualifiers: Bronchitis organism: unspecified organism Qualified Code(s): J20.9 - Acute bronchitis, unspecified (4) Hyponatremia Status: Acute (5) Lung cancer Status: Acute Qualifiers: Laterality: L Lung location: L (6) Acute respiratory failure Status: Acute Qualifiers: Respiratory failure complication: R (7) Malnutrition Status: Acute (8) DVT prophylaxis Status: Acute Core Measure Documentation - Palliative Care Palliative Care/ Comfort Measures: Not Applicable - Core Measures Any of the following diagnoses?: none Exam - Constitutional Vitals: Temp Pulse Resp BP Pulse Ox 97.9 F 64 17 135/95 97 10/25/16 16:44 10/26/16 07:34 10/26/16 07:34 10/25/16 16:44 10/26/16 07:35 General appearance: Present: no acute distress, cachectic - EENT Eyes: Present: PERRL ENT: hearing intact, clear oral mucosa - Neck Neck: Present: supple, normal ROM - Respiratory Respiratory effort: normal Respiratory: bilateral: diminished - Cardiovascular Heart Sounds: Present: S1 & S2. Absent: rub, click - Extremities Extremities: pulses symmetrical, No edema Peripheral Pulses: within normal limits - Abdominal General gastrointestinal: Present: soft, non-tender, non-distended, normal bowel sounds Male genitourinary: Present: normal - Integumentary Integumentary: Present: clear, warm, dry - Musculoskeletal Musculoskeletal: generalized weakness - Psychiatric Psychiatric: appropriate mood/affect, intact judgment & insight - Neurologic Neurologic: CNII-XII intact, moves all extremities Plan Follow up with: PRIMARY CARE,MD [Primary Care Provider] - 3-5 Days Prescriptions: Azithromycin [Zithromax TAB] 250 mg PO QDAY #6 tablet Cyclobenzaprine HCl [Flexeril 5 MG TAB] 5 mg PO TID PRN #24 tab PRN Reason: Muscle Spasm Prednisone [predniSONE 10 mg (6-Day Pack, 21 Tabs)] 10 mg PO .TAPER #1 tab.ds.pk Zolpidem [Ambien] 5 mg PO QHS PRN #30 tablet PRN Reason: Sleep Other Discharge Orders: Home Health Care (Amb) Location: Determined By Patient Oxygen (Amb) Location: Determined By Patient
[2016-10-26 09:04] VITALS: BP 140/70
--- NOTE | 2016-10-26 09:06 | Hem/Onc Progress Note ---
Assessment and Plan Dr. Mosqueda we will be scheduling Ebus and bronchoscopy as outpatient in [place]. In the meantime I will set up a PET scan as outpatient. Case discussed with the patient was in agreement. Patient had questions about tobacco cessation and as outpatient we can give him prescription for Zyban or Chantix Subjective Date of service: 10/26/16 Interval history: Patient feels a lot better. Case discussed with Dr. Mosqueda yesterday. Objective - Constitutional Vitals: Last Vital Signs Temp 98.2 F 10/26/16 07:15 Pulse 64 10/26/16 07:34 Resp 17 10/26/16 07:34 BP 140/70 10/26/16 07:15 Pulse Ox 97 10/26/16 07:35 Pain Intensity (0-10): denies any pain General appearance: no acute distress Performance status: 1-light work, ambulatory - Neck Neck: supple - Respiratory Respiratory: bilateral: diminished - Cardiovascular Rhythm: regular Extremities: No edema - Gastrointestinal General gastrointestinal: Present: soft
[2016-10-26] MEDS ORDERED: DELTASONE PO SCH (10:00)
[2016-10-26] MEDS: HABITROL TD SCH (10:24)
[2016-10-26] MEDS: HEPARIN SUB-Q SCH (10:25)
[2016-10-26] MEDS: PROTONIX PO SCH (10:25)
--- NOTE | 2016-10-26 12:55 | Progress Note ---
Assessment and Plan Imp: 1. RLL CAP 2. Centrilobular emphysema 3. COPD exac. 4. Acute respiratory failure, hypoxia 5. Hx of NSCLC 6. Chronic nicotine dependence, cigs 7. Mediastinal mass Rec: 1. RLL peribronchial densities likely inflammatory/infectious; would complete 7- 10 days of ABX 2. Stop Solumedrol; Prednisone taper at d/c 3. Stop smoking, d/w patient 4. Needs free water restriction 1500mL or less 5. Mediastinal/AP window lesion not accessible with regular bronchoscopy (yield for blind TBNA too low); I think it would be better to obtain an outpatient PET scan and likely outpatient bronch with EBUS under general anesthesia; patient is agreeable to this plan (he does not want to do 2 bronchs which is what he would need if we did a negative bronch here); d/w Dr. Saunders also 6. Can go home pulmonary-[facility]a but needs home O2 evaluation first; gave him our office information; he is to have PET done, bring in CD with images for my review, and then we will schedule Bronch/EBUS, he understands Plan of care reviewed w/ patient, he understands/agrees Subjective Date of service: 10/26/16 Principal diagnosis: lung cancer Interval history: No events. Feeling better. Wants to go home. No chest pain. SOB back at usual baseline. Has a cough, no sputum. On RA. Active Medications Acetaminophen (Tylenol) 650 mg PO Q6H PRN PRN Reason: Non Cardiac Pain or Temp>100.5 Last Admin: 10/25/16 22:46 Dose: 650 mg Albuterol (Proventil) 2.5 mg IH Q4HRT PRN PRN Reason: Shortness Of Breath Albuterol/Ipratropium (Duoneb 0.5 Mg-3 Mg/3 Ml Soln) 1 ampul IH TIDRT [facility] Last Admin: 10/26/16 07:33 Dose: 1 ampul Azithromycin (Zithromax) 500 mg PO QDAY [facility] Stop: 10/30/16 12:59 Benzonatate (Tessalon Perles) 100 mg PO Q8HR [facility] Last Admin: 10/26/16 06:52 Dose: 100 mg Heparin Sodium (Porcine) (Heparin) 5,000 unit SUB-Q Q12HR [facility] Last Admin: 10/26/16 10:25 Dose: 5,000 unit Azithromycin 500 mg/ Sodium (Chloride) 250 mls @ 250 mls/hr IV Q24HR [facility] Stop: 10/26/16 15:59 Last Admin: 10/25/16 13:16 Dose: 250 mls/hr Ceftriaxone Sodium (Rocephin/Ns 1 Gm/50 Ml) 1 gm in 50 mls @ 0 mls/hr IV Q24HR [facility] PRN Reason: Protocol Last Admin: 10/25/16 11:00 Dose: 50 mls/hr Lorazepam (Ativan) 0.5 mg IV Q4H PRN PRN Reason: Anxiety Last Admin: 10/21/16 23:03 Dose: 0.5 mg Nicotine (Habitrol) 21 mg TD QDAY [facility] Last Admin: 10/26/16 10:24 Dose: 21 mg Pantoprazole Sodium (Protonix) 40 mg PO QDAY [facility] Last Admin: 10/26/16 10:25 Dose: 40 mg Prednisone (Deltasone) 40 mg PO QDAY [facility] Last Admin: 10/26/16 10:25 Dose: 40 mg Zolpidem Tartrate (Ambien) 5 mg PO QHS PRN PRN Reason: Sleep Last Admin: 10/26/16 00:28 Dose: 5 mg Objective Vital Signs - 12hr 10/26/16 10/26/16 10/26/16 07:15 07:34 07:35 Temperature 98.2 F Pulse Rate [ 64 Posterior Throughout] Pulse Rate [ 58 L Right] Respiratory 20 Rate Respiratory 17 Rate [Posterior Throughout] Blood Pressure 140/70 [Right Arm] O2 Sat by Pulse 97 97 Oximetry Constitutional: no acute distress, alert Eyes: non-icteric ENT: oropharynx moist Neck: supple Effort: normal Ascultation: Bilateral: clear, diminished breath sounds Percussion: Bilateral: not dull Cardiovascular: regular rate and rhythm (mildly tachy, RR; no mrg) Gastrointestinal: normoactive bowel sounds, soft, non-tender, non-distended Extremities: no cyanosis, no edema, pink and warm Neurologic: normal mental status, non-focal exam, pupils equal and round Psychiatric: mood appropriate, affect normal CBC and BMP: 10/22/16 04:42 10/22/16 04:42 ABG, PT/INR, D-dimer: PT/INR, D-dimer PT 12.5 Sec. (12.2-14.9) 10/22/16 17:06 INR 0.94 (0.87-1.13) 10/22/16 17:06 Abnormal lab findings: Abnormal Labs 10/22/16 10/22/16 04:42 04:42 MCH 33 H MCHC 35 H Sodium 127 L Chloride 89.4 L BUN 5 L Creatinine 0.4 L Glucose 150 H Albumin 3.4 L Chest x-ray: report reviewed, image reviewed CT scan - chest: report reviewed, image reviewed
[2016-10-27] MEDS ORDERED: ZITHROMAX PO SCH (10:00)
== END 2016-10-26 13:15 | disposition home health service (06) | DRG 871 ==
LOC: ED 10:24 → 3A 12:35
PROVIDERS: ADMIT Internal Medicine; ATTEND Internal Medicine
DX: A41.9 Sepsis, unspecified organism (principal); E43 Unspecified severe protein-calorie malnutrition; J96.01 Acute respiratory failure with hypoxia; J18.9 Pneumonia, unspecified organism; J44.1 Chronic obstructive pulmonary disease with (acute) exacerbation; Z68.1 Body mass index [BMI] 19.9 or less, adult; E87.1 Hypo-osmolality and hyponatremia; B37.0 Candidal stomatitis; J44.0 Chronic obstructive pulmonary disease with (acute) lower respiratory infection; F17.210 Nicotine dependence, cigarettes, uncomplicated; R07.81 Pleurodynia; I10 Essential (primary) hypertension; J20.9 Acute bronchitis, unspecified; K21.9 Gastro-esophageal reflux disease without esophagitis; Z71.6 Tobacco abuse counseling; Z85.118 Personal history of other malignant neoplasm of bronchus and lung
CPT/HCPCS: 36415; 71020; 71270; 80048; 80053; 83880; 84484; 85025; 85027; 85610; 85730; 87040; 90686; 93005; 93010; 94640; 94760; 96360; 99406; J0456; J0696; J1644; J2060; J2930; J7030; J7050; J7512; Q9967

== ENCOUNTER 2016-11-25 07:57 | Outpatient (CLI) | payer BC ==
--- NOTE | 2016-11-26 09:51 | PET Report ---
PET/CT:11/25/16 07:57:00 CLINICAL: Lung cancer restaging. RADIOPHARMACEUTICAL: 14.9mCi F18-FDG. COMPARISON: CT chest 10/21/16 TECHNIQUE- Following intravenous injection of F-18 FDG and an approximately 60 minute uptake period, CT and PET images from the mid skull to the upper thighs were acquired with the patient in the fasted state. No contrast was administered. The CT protocol used for this PET CT study is designed for attenuation correction and anatomic localization of PET abnormalities. This frame table operator CT is not desired to produce and cannot replace, [id number] diagnostic CT scans with specific imaging protocols for different body parts and indications. Plasma glucose at the time of this test: 100g/dl. The standardized uptake values (SUV) are normalized to patient body weight and indicate the highest activity concentration (SUV max) in a given disease site. FINDINGS: Brain--Physiologic FDG uptake in the visualized regions of the brain. Neck--Physiologic FDG uptake . Chest--Physiologic FDG uptake in mediastinal blood pool and myocardium. Lungs--Extensive emphysema. Status post left upper lung resection. No abnormal uptake. No pulmonary nodule or mass. Pleura/pericardium--No abnormal uptake. Thoracic nodes--An FDG avid AP window mass measures approximately 4.0 x 3.8 x 3.5 cm with SUV 11.4. Hepatobiliary--No abnormal uptake. Liver background SUV mean, as a reference for comparing FDG studies, is 3.0 . No liver mass. Spleen--No abnormal uptake. Pancreas--No abnormal uptake. Adrenal Glands--No abnormal uptake. Kidneys/Ureters/Bladder--No abnormal uptake. Abdominopelvic Nodes--No abnormal uptake. Bowel/Peritoneum/Mesentery--No abnormal uptake. Pelvic organs--No abnormal uptake. Bones/Soft Tissues--No abnormal uptake. No bone lesion. IMPRESSION- A 4 cm AP window recurrence of lung cancer and no evidence of additional disease.
== END 2016-11-25 07:58 | disposition home or self-care (01) ==
LOC: PET 07:57
PROVIDERS: ATTEND Internal Medicine Hematology & Oncology
DX: C34.90 Malignant neoplasm of unspecified part of unspecified bronchus or lung (principal); Z79.899 Other long term (current) drug therapy
CPT/HCPCS: 78815; 82962; A9552